=== PATIENT | female | born 1970 | race Caucasian/White ===

== ENCOUNTER 2017-12-30 11:14 | Emergency (ER) | payer SELFPAY ==
[~2017-12-30] VITALS: Ht 170.2 cm; Wt 65.9 kg
[~2017-12-30 11:14] MED LIST: ANAPROX275 MG OR; AZO DINE95 MG OR; BACTRIM DS1 TAB OR; KEFLEX500 MG OR; LORTAB 10 OR; NAPROSYN500 MG PO; NO HOME MEDS; PERCOCET1 TA1 OR; [UNRECOGNIZED DRUG - REMARK]; no meds
[2017-12-30] MEDS ORDERED: MEDDOSEPAK PO (12:22)
[2017-12-30] MEDS ORDERED: PEPCID20 MG PO (12:22)
[2017-12-30 12:36] VITALS: BP 117/83
== END 2017-12-30 12:36 | disposition home or self-care (01) | DRG 918 ==
LOC: ED 11:14
DX: T65.891A Toxic effect of other specified substances, accidental (unintentional), initial encounter (principal); L23.5 Allergic contact dermatitis due to other chemical products; L50.0 Allergic urticaria; Y92.007 Garden or yard of unspecified non-institutional (private) residence as the place of occurrence of the external cause; F17.200 Nicotine dependence, unspecified, uncomplicated

== ENCOUNTER 2018-12-14 07:45 | Emergency (ER) | payer SELFPAY ==
[~2018-12-14] VITALS: Ht 170.2 cm; Wt 59.0 kg
[~2018-12-14 07:45] MED LIST changes: +MEDDOSEPAK PO; +PEPCID20 MG PO
[2018-12-14] MEDS ORDERED: BACTRIM DS1 TAB PO (08:06)
[2018-12-14] MEDS ORDERED: CEPHALEXIN500 M1 PO (08:06)
[2018-12-14 08:26] VITALS: BP 124/77
== END 2018-12-14 08:38 | disposition home or self-care (01) | DRG 603 ==
LOC: ED 07:45
PROC: 0W900ZZ Drainage of Head, Open Approach (ICD-10-PCS; principal; 2018-12-14)
DX: L02.811 Cutaneous abscess of head [any part, except face] (principal); F17.210 Nicotine dependence, cigarettes, uncomplicated; B95.62 Methicillin resistant Staphylococcus aureus infection as the cause of diseases classified elsewhere

== ENCOUNTER 2018-12-16 08:37 | Emergency (ER) | payer SELFPAY ==
[~2018-12-16] VITALS: Ht 170.2 cm; Wt 59.0 kg
[~2018-12-16 08:37] MED LIST changes: +BACTRIM DS1 TAB PO; +CEPHALEXIN500 M1 PO
[2018-12-16 08:57] VITALS: BP 133/87
== END 2018-12-16 09:02 | disposition home or self-care (01) | DRG 951 ==
LOC: ED 08:37
DX: Z48.01 Encounter for change or removal of surgical wound dressing (principal)

== ENCOUNTER 2022-02-02 16:11 | Emergency (ER) | payer SELFPAY ==
[~2022-02-02] VITALS: Ht 170.2 cm; Wt 58.9 kg
[2022-02-02 16:38] VITALS: BP 143/94
[2022-02-02 17:00] VITALS: BP 151/95
[2022-02-02 17:14] LABS: HEMATOCRIT 43.2 % (37.0-47.0); HEMOGLOBIN 14.5 g/dl (12.0-16.0); IMMATURE GRANULOCYTES 0.2 % (0.0-5.0); MEAN CELL VOLUME 94.9 fL CALC (80.0-100.0); MEAN CORPUSCULAR HGB 31.9 pG CALC (26.0-32.0); MEAN CORPUSCULAR HGB CONC 33.6 g/dL CAL (32.0-36.0); NEUT# 4.12 thou/uL (2.00-7.15); RED BLOOD COUNT 4.55 mill/uL (4.20-5.60); RED CELL DISTRI WIDTH 12.5 % (11.5-15.5)
[2022-02-02 17:24] LABS: ALBUMIN 4.3 g/dL (3.2-5.0); BUN 20 mg/dL (7-17); BUN/CREATININE RATIO 22 (12-20 (CALC)); CARBON DIOXIDE 25 mmol/l (22-30); CHLORIDE 107 mmol/l (95-108); CREATININE 0.9 mg/dL (0.5-1.0); GFR FOR AFR.AMER. > 60 ML/MIN (>=60 (CALC)); GFR OTHER RACES > 60 ML/MIN (>=60 (CALC)); SGOT/AST 46 u/l (14-36); SODIUM 141 mmol/l (137-146); TOTAL PROTEIN 7.5 g/dL (6.3-8.2)
[2022-02-02 17:27] LABS: ALKALINE PHOSPHATASE 91 u/l (38-126); ANION GAP 13 (6-22 (CALC)); BILIRUBIN, TOTAL 0.3 mg/dL (0.0-1.4); POTASSIUM 3.8 mmol/l (3.5-5.1)
[2022-02-02 17:30] VITALS: BP 139/90
[2022-02-02 18:01] VITALS: BP 136/94
[2022-02-02] MEDS ORDERED: VOLTAREN75 MG PO (18:17)
[2022-02-02 18:25] VITALS: BP 136/94
== END 2022-02-02 18:35 | disposition home or self-care (01) | DRG 605 ==
LOC: ED 16:11
PROVIDERS: Family Medicine
DX: S20.211A Contusion of right front wall of thorax, initial encounter (principal); Y93.83 Activity, rough housing and horseplay

== ENCOUNTER 2023-10-23 11:37 | Emergency (ER) | payer SELFPAY ==
[2023-10-23] VITALS (18 sets, daily range): BP systolic 77–205; BP diastolic 40–162
[~2023-10-23] VITALS: Ht 170.2 cm; Wt 54.0 kg
[~2023-10-23 11:37] MED LIST changes: +VOLTAREN75 MG PO
[2023-10-23 12:31] LABS: URINE BILIRUBIN - DIPSTICK Negative (NEGATIVE); URINE BLOOD DIPSTICK Small (NEGATIVE); URINE GLUCOSE - DIPSTICK Negative (NEGATIVE); URINE KETONE Negative (NEGATIVE); URINE NITRITE - DIPSTICK Negative (Negative); URINE PROTEIN - DIPSTICK Negative (NEG-TRACE); URINE SPECIFIC GRAVITY <=1.005; URINE UROBILINOGEN - DIPSTICK 0.2 E.U./dL (0.2)
[2023-10-23 12:32] LABS: BASO% 0.5 % (0-3); EOS% 1.9 % (0-8); HEMATOCRIT 44.3 % (37.0-47.0); HEMOGLOBIN 14.7 g/dl (12.0-16.0); IMMATURE GRANULOCYTES 0.2 % (0.0-5.0); LYMPH% 40.8 % (15-41); MEAN CELL VOLUME 95.7 fL CALC (80.0-100.0); MEAN CORPUSCULAR HGB 31.7 pG CALC (26.0-32.0); MEAN CORPUSCULAR HGB CONC 33.2 g/dL CAL (32.0-36.0); MONO% 8.3 % (2-13); NEUT# 4.29 thou/uL (2.00-7.15); NEUT% 48.3 % (42-76); RED BLOOD COUNT 4.63 mill/uL (4.20-5.60); RED CELL DISTRI WIDTH 12.4 % (11.5-15.5)
[2023-10-23 12:35] LABS: URINE BACTERIA FEW hpf; URINE COLOR Yellow; URINE LEUK ESTERASE Moderate (NEGATIVE)
[2023-10-23 12:44] LABS: ALBUMIN 4.8 g/dL (3.2-5.0); BILIRUBIN, TOTAL 0.6 mg/dL (0.02-1.3); CREATININE 0.8 mg/dL (0.5-1.0); POTASSIUM 3.9 mmol/l (3.5-5.1); TOTAL PROTEIN 8.1 g/dL (6.3-8.2)
[2023-10-23] MEDS ORDERED: MACRODANTIN100 MG PO ×2 (14:49→16:03)
== END 2023-10-23 15:25 | disposition home or self-care (01) | DRG 696 ==
LOC: ED 11:37
PROVIDERS: Family Medicine
PROC: 0T9B70Z Drainage of Bladder with Drainage Device, Via Natural or Artificial Opening (ICD-10-PCS; principal; 2023-10-23)
DX: R33.9 Retention of urine, unspecified (principal); B19.20 Unspecified viral hepatitis C without hepatic coma; F17.210 Nicotine dependence, cigarettes, uncomplicated; F17.290 Nicotine dependence, other tobacco product, uncomplicated
CPT/HCPCS: Q9967

== ENCOUNTER 2024-05-05 21:07 | Observation (INO) | payer OTHER ==
[~2024-05-05] VITALS: Ht 170.2 cm; Wt 60.2 kg
[~2024-05-05 21:07] MED LIST changes: +MACRODANTIN100 MG PO
[2024-05-05 21:43] LABS: BASO% 0.4 % (0-3); EOS% 1.3 % (0-8); HEMOGLOBIN 13.3 g/dl (12.0-16.0); IMMATURE GRANULOCYTES 0.2 % (0.0-5.0); LYMPH% 37.3 % (15-41); MEAN CELL VOLUME 95.2 fL CALC (80.0-100.0); MEAN CORPUSCULAR HGB 31.7 pG CALC (26.0-32.0); MEAN CORPUSCULAR HGB CONC 33.3 g/dL CAL (32.0-36.0); MONO% 6.9 % (2-13); NEUT# 6.84 thou/uL (2.00-7.15); NEUT% 53.9 % (42-76); RED BLOOD COUNT 4.2 mill/uL (4.20-5.60); RED CELL DISTRI WIDTH 12.6 % (11.5-15.5)
[2024-05-05 21:54] LABS: ALBUMIN 4.5 g/dL (3.2-5.0); ALKALINE PHOSPHATASE 77 u/l (38-126); ANION GAP 14 (6-22 (CALC)); BILIRUBIN, TOTAL 0.4 mg/dL (0.02-1.3); BUN 15 mg/dL (7-17); BUN/CREATININE RATIO 18 (12-20 (CALC)); CALCULATED LDLCHOLESTEROL 72 mg/dL (62-129 (CALC)); CARBON DIOXIDE 23 mmol/l (22-30); CHLORIDE 105 mmol/l (95-108); CREATININE 0.9 mg/dL (0.5-1.0); ESTIMATED GFR 76 ML/MIN (>=90 (CALC)); HDL CHOLESTEROL 47 mg/dL (39.0-59.0); POTASSIUM 3.6 mmol/l (3.5-5.1); SGOT/AST 34 u/l (14-36); SODIUM 138 mmol/l (137-146); TOTAL CHOLESTEROL 141 mg/dl (0-199); TOTAL PROTEIN 7.4 g/dL (6.3-8.2); TOTAL TRIGLYCERIDES 114 mg/dl (0-149); VLDL CHOLESTROL 23 mg/dl (2-49 (CALC))
[2024-05-05 22:04] LABS: PROTHROMBIN TIME 10.3 SECONDS (9.0-12.5)
[2024-05-05 22:25] VITALS: BP 136/89
[2024-05-05 22:30] VITALS: BP 140/100
[2024-05-05 22:41] LABS: URINE BILIRUBIN - DIPSTICK Negative (NEGATIVE); URINE BLOOD DIPSTICK Small (NEGATIVE); URINE GLUCOSE - DIPSTICK Negative (NEGATIVE); URINE KETONE Negative (NEGATIVE); URINE LEUK ESTERASE Trace (NEGATIVE); URINE NITRITE - DIPSTICK Negative (Negative); URINE PROTEIN - DIPSTICK Negative (NEG-TRACE); URINE UROBILINOGEN - DIPSTICK 0.2 E.U./dL (0.2)
[2024-05-05 22:42] LABS: URINE COLOR Yellow
[2024-05-05 22:49] LABS: URINE SQUAMOUS EPITHELIAL CELL FEW EPI/hpf (0-FEW); URINE WBC 0-2 WBC/hpf (0-5)
[2024-05-05 23:00] VITALS: BP 140/89
[2024-05-05] MEDS ORDERED: ASPIRIN 81 MG/TAB PO ONE (23:10)
[2024-05-05] MEDS ORDERED: ALUM & MAG HYDROX-SIMETHICONE 30 ML PO PRN (23:15)
[2024-05-05] MEDS ORDERED: Polyethylene Glycol 3350 17 GM/PKT PO PRN (23:15)
[2024-05-05] MEDS ORDERED: FAMOTIDINE 10MG/ML 2ML SDV IV PRN (23:15)
[2024-05-05] MEDS ORDERED: IBUPROFEN 800 MG/TAB PO PRN (23:15)
[2024-05-05] MEDS ORDERED: ONDANSETRON 4 MG/TAB ODT PO PRN (23:15)
[2024-05-05] MEDS ORDERED: ONDANSETRON HCl 4 MG/2 ML SDV IV PRN (23:15)
[2024-05-05] MEDS ORDERED: ASPIRIN 81 MG/TAB PO SCH (23:17)
[2024-05-05 23:30] VITALS: BP 123/79
[2024-05-06 00:01] VITALS: BP 114/78
[2024-05-06 00:30] VITALS: BP 97/71
[2024-05-06 01:10] VITALS: BP 138/76
[2024-05-06 04:00] VITALS: BP 92/58
[2024-05-06 06:03] LABS: BASO% 0.5 % (0-3); EOS% 1.5 % (0-8); HEMATOCRIT 37.7 % (37.0-47.0); HEMOGLOBIN 12.5 g/dl (12.0-16.0); IMMATURE GRANULOCYTES 0.2 % (0.0-5.0); LYMPH% 39.4 % (15-41); MEAN CELL VOLUME 96.7 fL CALC (80.0-100.0); MEAN CORPUSCULAR HGB 32.1 pG CALC (26.0-32.0); MEAN CORPUSCULAR HGB CONC 33.2 g/dL CAL (32.0-36.0); NEUT# 5.38 thou/uL (2.00-7.15); NEUT% 51.4 % (42-76); RED BLOOD COUNT 3.9 mill/uL (4.20-5.60); RED CELL DISTRI WIDTH 12.7 % (11.5-15.5)
[2024-05-06 07:00] VITALS: BP 98/68
[2024-05-06] MEDS ORDERED: ATORVASTATIN CA40 MG PO (09:42)
[2024-05-06] MEDS ORDERED: EPCLUSA PO (09:43)
[2024-05-06] MEDS ORDERED: LISINOP/HCTZ1 TA1 PO (09:43)
== END 2024-05-06 08:20 | disposition left against medical advice (07) | DRG 93 ==
LOC: ED 21:07 → ED-I 21:15 → ED 21:15 → ED-I 22:50 → ED 23:18 → MS2 23:18
PROVIDERS: Internal Medicine; ADMIT Internal Medicine; ATTEND Internal Medicine
DX: R25.8 Other abnormal involuntary movements (principal); R47.81 Slurred speech; R53.1 Weakness; K74.60 Unspecified cirrhosis of liver; B19.20 Unspecified viral hepatitis C without hepatic coma; Z86.73 Personal history of transient ischemic attack (TIA), and cerebral infarction without residual deficits
CPT/HCPCS: Q9967